=== PATIENT | male | born 1945 | race Caucasian/White ===

== ENCOUNTER 2019-06-11 08:12 | Outpatient (CLI) | payer MEDICARE ==
[2019-06-11 10:02] LABS: BASOPHILS # (AUTO) 0.1 10^3/uL (0.0-0.1); BASOPHILS % (AUTO) 0.6 %; EOSINOPHILS # (AUTO) 0.3 10^3/uL (0.0-0.7); EOSINOPHILS % (AUTO) 3.4 %; HGB - HEMOGLOBIN 15.7 g/dL (14.0-18.0); LYMPHOCYTES # (AUTO) 1.8 10^3/uL (1.5-3.5); LYMPHOCYTES % (AUTO) 22.9 %; MEAN CORPUSCULAR HEMOGLOBIN 32.1 pg (27.0-31.0); MEAN CORPUSCULAR HGB CONC 34.1 g/dL (32.0-36.0); MEAN CORPUSCULAR VOLUME 94.1 fL (80.0-94.0); MEAN PLATELET VOLUME 10.3 fL (7.4-11.4); MONOCYTES # (AUTO) 0.8 10^3/uL (0.0-1.0); MONOCYTES % (AUTO) 9.4 %; NEUTROPHILS # (AUTO) 5.1 10^3/uL (1.5-6.6); NEUTROPHILS % (AUTO) 63.4 %; PLT - PLATELET COUNT 273 10^3/uL (130-450); RED BLOOD COUNT 4.89 10^6/uL (4.70-6.10); RED CELL DISTRIBUTION WIDTH 13.1 % (12.0-15.0)
[2019-06-11 10:21] LABS: ALBUMIN/GLOBULIN RATIO 1.4 (1.0-2.2); ALKALINE PHOSPHATASE 68 IU/L (42-121); ALT ALANINE AMINOTRANSFERASE 33 IU/L (10-60); AST ASPARTATE AMINOTRANSFERASE 31 IU/L (10-42); BILIRUBIN,TOTAL 0.9 mg/dL (0.2-1.0); BUN - BLOOD UREA NITROGEN 21 mg/dL (6-20); CALCIUM 9.4 mg/dL (8.5-10.3); CARBON DIOXIDE - CO2 29 mmol/L (21-32); CHLORIDE 102 mmol/L (101-111); CHOL/HDL RATIO 3.1 (<5.0); CHOLESTEROL 162 mg/dL; CREATININE 1.1 mg/dL (0.6-1.2); GFR - MDRD 65 (>89); GLUCOSE 118 mg/dL (70-100); HDL CHOLESTEROL 52 mg/dL; LDL CHOLESTEROL,CALCULATED 96 mg/dL; LDL/HDL RATIO 1.8 (<3.6); SODIUM 138 mmol/L (135-145); TOTAL PROTEIN 6.9 g/dL (6.7-8.2); VLDL CHOLESTEROL 14 mg/dL
[2019-06-11 10:28] LABS: PSA FREE 0.295 ng/mL (0.16-2.81); PSA TOTAL 0.594 ng/mL (0.000-2.000)
== END 2019-06-11 08:13 | disposition home or self-care (01) ==
LOC: LAB.S 08:12
PROVIDERS: ATTEND Registered Nurse
DX: N40.0 Benign prostatic hyperplasia without lower urinary tract symptoms (principal); K21.9 Gastro-esophageal reflux disease without esophagitis; E78.5 Hyperlipidemia, unspecified; E04.1 Nontoxic single thyroid nodule
CPT/HCPCS: 36415; 80053; 80061; 83721; 84153; 84154; 84443; 85025

== ENCOUNTER 2020-04-08 07:37 | Outpatient (CLI) | payer MEDICARE ==
[2020-04-08 14:33] LABS: BASOPHILS % (AUTO) 0.5 %; EOSINOPHILS # (AUTO) 0.3 10^3/uL (0.0-0.7); EOSINOPHILS % (AUTO) 3.4 %; HGB - HEMOGLOBIN 15.6 g/dL (14.0-18.0); LYMPHOCYTES # (AUTO) 2.2 10^3/uL (1.5-3.5); LYMPHOCYTES % (AUTO) 26.3 %; MEAN CORPUSCULAR HEMOGLOBIN 30.9 pg (27.0-31.0); MEAN CORPUSCULAR HGB CONC 32.8 g/dL (32.0-36.0); MEAN CORPUSCULAR VOLUME 94.3 fL (80.0-94.0); MEAN PLATELET VOLUME 10.3 fL (7.4-11.4); MONOCYTES # (AUTO) 0.8 10^3/uL (0.0-1.0); MONOCYTES % (AUTO) 9.4 %; PLT - PLATELET COUNT 289 10^3/uL (130-450); RED BLOOD COUNT 5.05 10^6/uL (4.70-6.10); RED CELL DISTRIBUTION WIDTH 13.1 % (12.0-15.0); WHITE BLOOD COUNT 8.3 x10^3/uL (4.8-10.8)
[2020-04-08 15:46] LABS: ALBUMIN/GLOBULIN RATIO 1.4 (1.0-2.2); ALKALINE PHOSPHATASE 72 IU/L (42-121); ALT ALANINE AMINOTRANSFERASE 33 IU/L (10-60); AST ASPARTATE AMINOTRANSFERASE 30 IU/L (10-42); BILIRUBIN,TOTAL 1.1 mg/dL (0.2-1.0); BUN - BLOOD UREA NITROGEN 26 mg/dL (6-20); CALCIUM 9.6 mg/dL (8.5-10.3); CARBON DIOXIDE - CO2 28 mmol/L (21-32); CHLORIDE 105 mmol/L (101-111); CHOL/HDL RATIO 3.4 (<5.0); CHOLESTEROL 161 mg/dL; CREATININE 1.1 mg/dL (0.6-1.2); GLUCOSE 109 mg/dL (70-100); HDL CHOLESTEROL 47 mg/dL; LDL CHOLESTEROL,CALCULATED 98 mg/dL; LDL/HDL RATIO 2.1 (<3.6); SODIUM 139 mmol/L (135-145); TOTAL PROTEIN 6.9 g/dL (6.7-8.2); VLDL CHOLESTEROL 16 mg/dL
== END 2020-04-08 07:38 | disposition home or self-care (01) ==
LOC: LAB.S 07:37
PROVIDERS: ATTEND Registered Nurse
DX: N40.0 Benign prostatic hyperplasia without lower urinary tract symptoms (principal); K21.9 Gastro-esophageal reflux disease without esophagitis; E78.5 Hyperlipidemia, unspecified; I10 Essential (primary) hypertension; I26.99 Other pulmonary embolism without acute cor pulmonale; E04.1 Nontoxic single thyroid nodule
CPT/HCPCS: 36415; 80053; 80061; 83721; 84153; 84443; 85025

== ENCOUNTER 2021-04-15 07:08 | Outpatient (CLI) | payer MEDICARE ==
[2021-04-15 14:59] LABS: BASOPHILS % (AUTO) 0.5 %; EOSINOPHILS # (AUTO) 0.3 10^3/uL (0.0-0.7); EOSINOPHILS % (AUTO) 3.4 %; HCT - HEMATOCRIT 48.2 % (42.0-52.0); LYMPHOCYTES # (AUTO) 2.3 10^3/uL (1.5-3.5); LYMPHOCYTES % (AUTO) 26.5 %; MEAN CORPUSCULAR HEMOGLOBIN 31.1 pg (27.0-31.0); MEAN CORPUSCULAR HGB CONC 33.2 g/dL (32.0-36.0); MEAN CORPUSCULAR VOLUME 93.8 fL (80.0-94.0); MEAN PLATELET VOLUME 10.4 fL (7.4-11.4); MONOCYTES # (AUTO) 0.7 10^3/uL (0.0-1.0); MONOCYTES % (AUTO) 7.7 %; NEUTROPHILS # (AUTO) 5.3 10^3/uL (1.5-6.6); NEUTROPHILS % (AUTO) 61.4 %; PLT - PLATELET COUNT 295 10^3/uL (130-450); RED BLOOD COUNT 5.14 10^6/uL (4.70-6.10); RED CELL DISTRIBUTION WIDTH 13.1 % (12.0-15.0); WHITE BLOOD COUNT 8.7 x10^3/uL (4.8-10.8)
[2021-04-15 15:11] LABS: THYROID STIMULATING HORMONE 4.71 uIU/mL (0.34-5.60)
[2021-04-15 15:22] LABS: ALBUMIN/GLOBULIN RATIO 1.3 (1.0-2.2); ALKALINE PHOSPHATASE 73 IU/L (42-121); ALT ALANINE AMINOTRANSFERASE 32 IU/L (10-60); AST ASPARTATE AMINOTRANSFERASE 28 IU/L (10-42); BILIRUBIN,TOTAL 0.9 mg/dL (0.2-1.0); BUN - BLOOD UREA NITROGEN 29 mg/dL (6-20); CALCIUM 9.4 mg/dL (8.5-10.3); CARBON DIOXIDE - CO2 28 mmol/L (21-32); CHLORIDE 101 mmol/L (101-111); CHOL/HDL RATIO 4.1 (<5.0); CHOLESTEROL 180 mg/dL; CREATININE 1.2 mg/dL (0.6-1.2); GFR - MDRD 59 (>89); GLUCOSE 121 mg/dL (70-100); HDL CHOLESTEROL 44 mg/dL; LDL CHOLESTEROL,CALCULATED 115 mg/dL; LDL/HDL RATIO 2.6 (<3.6); POTASSIUM 3.9 mmol/L (3.5-5.0); SODIUM 138 mmol/L (135-145); TOTAL PROTEIN 7.2 g/dL (6.7-8.2); TRIGLYCERIDES 107 mg/dL; VLDL CHOLESTEROL 21 mg/dL
== END 2021-04-15 07:09 | disposition home or self-care (01) ==
LOC: LAB.S 07:08
PROVIDERS: ATTEND Registered Nurse
DX: N40.0 Benign prostatic hyperplasia without lower urinary tract symptoms (principal); E78.5 Hyperlipidemia, unspecified; I10 Essential (primary) hypertension; E04.1 Nontoxic single thyroid nodule; Z12.5 Encounter for screening for malignant neoplasm of prostate
CPT/HCPCS: 36415; 80053; 80061; 84443; 85025; G0103; 83721; 84153

== ENCOUNTER 2022-05-05 08:30 | Outpatient (CLI) | payer MEDICARE ==
[2022-05-05 14:54] LABS: BASOPHILS % (AUTO) 0.5 %; EOSINOPHILS # (AUTO) 0.2 10^3/uL (0.0-0.7); EOSINOPHILS % (AUTO) 2.2 %; HCT - HEMATOCRIT 49.8 % (42.0-52.0); LYMPHOCYTES # (AUTO) 2.2 10^3/uL (1.5-3.5); LYMPHOCYTES % (AUTO) 25.4 %; MEAN CORPUSCULAR HGB CONC 32.1 g/dL (32.0-36.0); MEAN CORPUSCULAR VOLUME 93.3 fL (80.0-94.0); MEAN PLATELET VOLUME 10.4 fL (7.4-11.4); MONOCYTES # (AUTO) 0.8 10^3/uL (0.0-1.0); MONOCYTES % (AUTO) 8.8 %; NEUTROPHILS # (AUTO) 5.3 10^3/uL (1.5-6.6); NEUTROPHILS % (AUTO) 62.7 %; PLT - PLATELET COUNT 309 10^3/uL (130-450); RED BLOOD COUNT 5.34 10^6/uL (4.70-6.10); RED CELL DISTRIBUTION WIDTH 12.8 % (12.0-15.0); WHITE BLOOD COUNT 8.5 x10^3/uL (4.8-10.8)
[2022-05-05 15:26] LABS: THYROID STIMULATING HORMONE 3.66 uIU/mL (0.34-5.60)
[2022-05-05 15:29] LABS: ALBUMIN 4.2 g/dL (3.2-5.5); ALBUMIN/GLOBULIN RATIO 1.4 (1.0-2.2); ALKALINE PHOSPHATASE 73 IU/L (42-121); ALT ALANINE AMINOTRANSFERASE 26 IU/L (10-60); AST ASPARTATE AMINOTRANSFERASE 28 IU/L (10-42); BILIRUBIN,TOTAL 1.2 mg/dL (0.2-1.0); BUN - BLOOD UREA NITROGEN 33 mg/dL (6-20); CALCIUM 9.3 mg/dL (8.5-10.3); CARBON DIOXIDE - CO2 26 mmol/L (21-32); CHLORIDE 99 mmol/L (101-111); CHOL/HDL RATIO 3.3 (<5.0); CHOLESTEROL 169 mg/dL; CREATININE 1.3 mg/dL (0.6-1.2); GFR - MDRD 53 (>89); GLUCOSE 119 mg/dL (70-100); HDL CHOLESTEROL 51 mg/dL; LDL CHOLESTEROL,CALCULATED 104 mg/dL; POTASSIUM 4.1 mmol/L (3.5-5.0); SODIUM 138 mmol/L (135-145); TOTAL PROTEIN 7.2 g/dL (6.7-8.2); TRIGLYCERIDES 71 mg/dL; VLDL CHOLESTEROL 14 mg/dL
== END 2022-05-05 08:31 | disposition home or self-care (01) ==
LOC: LAB.S 08:30
PROVIDERS: ATTEND Registered Nurse
DX: I10 Essential (primary) hypertension (principal); E78.5 Hyperlipidemia, unspecified; E04.1 Nontoxic single thyroid nodule; N40.0 Benign prostatic hyperplasia without lower urinary tract symptoms
CPT/HCPCS: 36415; 80053; 80061; 84443; 85025; G0103; 83721; 84153

== ENCOUNTER 2023-04-24 08:18 | Outpatient (CLI) | payer MEDICARE ==
[2023-04-24 15:05] LABS: CALCIUM 9.3 mg/dL (8.5-10.3); POTASSIUM 4.4 mmol/L (3.5-4.5)
[2023-04-24 20:56] LABS: ESTIMATED AVERAGE GLUCOSE 117 mg/dL (70-100); HEMOGLOBIN A1c% 5.7 % (4.27-6.07)
== END 2023-04-24 08:19 | disposition home or self-care (01) ==
LOC: LAB.S 08:18
PROVIDERS: ATTEND Registered Nurse
DX: R73.9 Hyperglycemia, unspecified (principal)
CPT/HCPCS: 36415; 80048; 83036

== ENCOUNTER 2023-10-16 10:54 | Inpatient (IN) | payer MEDICARE ==
--- NOTE | 2023-10-16 11:14 | ED Physician Documentation ---
PD HPI DYSPNEA - Stated complaint Stated Complaint: SOA - Chief complaint Chief Complaint: Resp - Additional information Additional information: 78-year-old male with history of hypertension, hypercholesterolemia, pulmonary embolism x 2 anticoagulated on Xaerlto possible A-fib about 10 years ago presents emergency department for dyspnea on exertion. Patient said about a month ago he was experiencing a persistent cough with hacking and has been noticing increased shortness of breath with exertional activity that has been getting severely worse over the last month and a half. He says that he also is having some new swelling spreading up his legs to his thigh that he has never had before. No recent fevers or chills. Patient has not missed any recent doses of his Xarelto and denies any chest pain or dizziness he does endorse and some chest tightness with inhalation. PD PAST MEDICAL HISTORY - Past Medical History Past Medical History: Yes Cardiovascular: Hypertension, High cholesterol Respiratory: Other - Past Surgical History Past Surgical History: No - Present Medications Home Medications: Ambulatory Orders Medication Instructions Recorded Confirmed Atorvastatin [Lipitor] 20 mg HS 10/16/23 10/16/23 Lisinopril [Zestril] 20 mg 10/16/23 Rivaroxaban [Xarelto] 20 mg 10/16/23 hydroCHLOROthiazide [Hydrodiuril] 12.5 mg DAILY 10/16/23 10/16/23 - Allergies Allergies/Adverse Reactions: Allergies Allergy/AdvReac Type Severity Reaction Status Date / Time No Known Drug Allergies Allergy Verified 10/16/23 11:24 - Social History Does the pt smoke?: No Smoking Status: Never smoker Does the pt drink ETOH?: Yes Does the pt have substance abuse?: No - Immunizations Immunizations are current?: Yes PD ED PE NORMAL - Vitals Vital signs reviewed: Yes - General General: Alert and oriented X 3, No acute distress, Well developed/nourished - HEENT HEENT: Atraumatic - Cardiac Cardiac: RRR, Other (irregularly irregular) - Respiratory Respiratory: No respiratory distress, Other (decreaed breath sounds) - Derm Derm: Normal color, Warm and dry, No rash - Extremities Extremities: Other (bilateral 3+ pitting edema) - Psych Psych: Normal mood - Free text exam Free text exam: right Results - Vitals Vitals: Vital Signs - 24 hr 10/16/23 10/16/23 10/16/23 11:00 11:20 11:30 Temperature 36.7 C Heart Rate 89 187 H 195 H Respiratory 20 21 99 H Rate Blood Pressure 132/92 H 133/100 H 124/101 H O2 Saturation 100 100 20 L 10/16/23 10/16/23 10/16/23 11:40 11:49 12:02 Temperature Heart Rate 152 H 159 H 157 H Respiratory 19 17 20 Rate Blood Pressure 121/78 123/91 H 123/87 H O2 Saturation 99 95 97 10/16/23 10/16/23 10/16/23 12:10 12:15 12:30 Temperature Heart Rate 166 H 184 H 164 H Respiratory 17 14 17 Rate Blood Pressure 125/96 H 122/93 H 102/81 H O2 Saturation 97 95 95 10/16/23 10/16/23 13:00 14:10 Temperature Heart Rate 155 H 144 H Respiratory 22 18 Rate Blood Pressure 133/89 H 129/96 H O2 Saturation 95 98 Oxygen O2 Source Room air - EKG (time done) 1115 EKG releavant findings:: EKG personally interpreted by author of this note. Relevant findings are: Rate: Rate (enter#) (181) Rhythm: Atrial fibrillation, Other (RVR) Ischemia: Non specific changes Computer interpretation: Agree with computer - Labs Labs: Laboratory Tests 10/16/23 10/16/23 10/16/23 11:13 11:13 11:13 WBC 10.7 RBC 5.44 Hgb 16.4 Hct 50.9 MCV 93.6 MCH 30.1 MCHC 32.2 RDW 13.9 Plt Count 245 MPV 11.6 H Neut # (Auto) 7.2 H Lymph # (Auto) 2.4 [place] # (Auto) 0.9 Eos # (Auto) 0.2 Baso # (Auto) 0.1 Absolute Nucleated RBC 0.00 Nucleated RBC % 0.0 PT INR Sodium 142 Potassium 4.1 Chloride 107 Carbon Dioxide 27 Anion Gap 8.0 BUN 29 H Creatinine 1.4 H Estimated GFR (MDRD) 49 L Glucose 134 H Calcium 9.9 Total Bilirubin 1.5 H AST 49 H ALT 61 H Alkaline Phosphatase 81 Troponin I High Sens 10.6 B-Natriuretic Peptide 480 H Total Protein 7.2 Albumin 4.2 Globulin 3.0 Albumin/Globulin Ratio 1.4 Lipase 44 TSH 10/16/23 10/16/23 11:13 11:13 WBC RBC Hgb Hct MCV MCH MCHC RDW Plt Count MPV Neut # (Auto) Lymph # (Auto) [place] # (Auto) Eos # (Auto) Baso # (Auto) Absolute Nucleated RBC Nucleated RBC % PT 15.5 H INR 1.5 H Sodium Potassium Chloride Carbon Dioxide Anion Gap BUN Creatinine Estimated GFR (MDRD) Glucose Calcium Total Bilirubin AST ALT Alkaline Phosphatase Troponin I High Sens B-Natriuretic Peptide Total Protein Albumin Globulin Albumin/Globulin Ratio Lipase TSH 5.28 - Rads (name of study) Chest x-ray Relevant Findings:: Final report received, EMP independent interpretation of test, Other (Moderate right small left pleural effusions with bibasilar ate lectasis) PD Medical Decision Making - ED course ED course: 78-year-old presents emergency department for dyspnea on exertion. Upon arrival patient is found to be quite tachycardic and appears to be in A-fib RVR confirmed with EKG heart rate up to the 180s 190s. We attempted to give him 2 doses of IV push diltiazem with no improvement of symptoms. Labs are complete for further evaluation INR is 1.5 he says that he has not missed any doses of his Eliquis. No leukocytosis no anemia BUN slightly elevated at 29 GFR slightly suppressed at 49 last GFR was 04/24/2023 and it was 72. Patient does endorse that he has had a recent weight gain of about 7 to 9 pounds over the last couple weeks with worsening bilateral pitting edema. BNP is found to be 480 making me suspicious for possible new diagnoses of possible heart failure. He was also given 40 mg of IV Lasix here in the emergency department and again we are having a hard time controlling his rate. I spoke with hospitalist Dr. Qiu about patient's A-fib with RVR and poor rate control he remains hemodynamically stable and Dr. Qiu has graciously agreed to admit patient for IV diltiazem and inpatient echocardiogram for further workup of his A-fib with RVR to help with rate control. Patient has reluctantly agreed for hospitalization but is hopeful to not be here too long. I did consider doing a CT chest angio but given the fact that patient has had the symptoms now for about a month and a half he has no hypoxia and is fully anticoagulated on Eliquis this is lower on my differential not something I think warrants workup at this point in time. Departure - Departure Disposition: 66 [facility] DC/Xfer Clinical Impression: Atrial fibrillation with RVR, ASHLY (acute kidney injury), Pleural effusion Condition: Stable Discharge Date/Time: 10/16/23 15:10
[2023-10-16 11:18] LABS: BASOPHILS # (AUTO) 0.1 10^3/uL (0.0-0.1); BASOPHILS % (AUTO) 0.5 %; EOSINOPHILS # (AUTO) 0.2 10^3/uL (0.0-0.7); EOSINOPHILS % (AUTO) 1.8 %; HCT - HEMATOCRIT 50.9 % (42.0-52.0); HGB - HEMOGLOBIN 16.4 g/dL (14.0-18.0); LYMPHOCYTES # (AUTO) 2.4 10^3/uL (1.5-3.5); LYMPHOCYTES % (AUTO) 21.9 %; MEAN CORPUSCULAR HEMOGLOBIN 30.1 pg (27.0-31.0); MEAN CORPUSCULAR HGB CONC 32.2 g/dL (32.0-36.0); MEAN CORPUSCULAR VOLUME 93.6 fL (80.0-94.0); MEAN PLATELET VOLUME 11.6 fL (7.4-11.4); MONOCYTES # (AUTO) 0.9 10^3/uL (0.0-1.0); MONOCYTES % (AUTO) 8.7 %; NEUTROPHILS # (AUTO) 7.2 10^3/uL (1.5-6.6); NEUTROPHILS % (AUTO) 66.8 %; PLT - PLATELET COUNT 245 10^3/uL (130-450); RED BLOOD COUNT 5.44 10^6/uL (4.70-6.10); RED CELL DISTRIBUTION WIDTH 13.9 % (12.0-15.0); WHITE BLOOD COUNT 10.7 x10^3/uL (4.8-10.8)
[2023-10-16] MEDS: diltiaZEM INJ 5 MG/ML VIAL IVP STA ×2 (11:36→12:08)
[2023-10-16 11:38] LABS: ALBUMIN 4.2 g/dL (3.2-5.5); ALBUMIN/GLOBULIN RATIO 1.4 (1.0-2.2); BILIRUBIN,TOTAL 1.5 mg/dL (0.2-1.0); CALCIUM 9.9 mg/dL (8.5-10.3); CREATININE 1.4 mg/dL (0.6-1.3); POTASSIUM 4.1 mmol/L (3.5-4.5); TOTAL PROTEIN 7.2 g/dL (6.4-8.9)
[2023-10-16 11:39] LABS: TROPONIN I HIGH SENSITIVITY 10.6 ng/L (2.3-19.7)
--- NOTE | 2023-10-16 11:41 | XRAY Report ---
PROCEDURE: Chest 1V INDICATIONS: Chest Pain TECHNIQUE: One view of the chest was acquired. COMPARISON: CT 09/29/2011 FINDINGS: Surgical changes and devices: None. Lungs and pleura: Moderate right and small left pleural effusions with bibasilar atelectasis. Mediastinum: Mediastinal contours appear normal. Heart size is normal. Bones and chest wall: No suspicious bony lesions. Overlying soft tissues appear unremarkable. IMPRESSION: Moderate right and small left pleural effusions with bibasilar atelectasis. Reviewed by: Henry Lopez MD on 10/16/2023 10:40 AM NATHAN Approved by: Henry Lopez MD on 10/16/2023 10:40 AM NATHAN Station ID: [id number]
[2023-10-16 11:48] LABS: INR 1.5 (0.8-1.2); PT - PROTHROMBIN TIME 15.5 secs (9.9-12.6)
[2023-10-16] MEDS: PROCAINAMIDE 1,000 MG in SODIUM CHLORIDE 0.9% 240 ML IV STA (12:13)
[2023-10-16] MEDS: diltiaZEM INJ 125 MG in DEXTROSE 5% 100 ML IV STA (14:11)
[2023-10-16] MEDS ORDERED: SODIUM CHLORIDE FLUSH 0.9% 10 ML SYRINGE IVP PRN (14:18)
[2023-10-16] MEDS ORDERED: ACETAMINOPHEN 325 MG TABLET PO PRN (14:18)
[2023-10-16] MEDS ORDERED: ONDANSETRON 4 MG/2 ML VIAL IVP PRN (14:18)
[2023-10-16] MEDS ORDERED: ONDANSETRON ODT 4 MG TABLET TL PRN (14:18)
--- NOTE | 2023-10-16 16:08 | HISTORY & PHYSICAL EXAMINATION ---
Chief Complaint - Chief Complaint Chief Complaint: Shortness of breath History of Present Illness - History of Present Illness HPI Comment/Other: Patient is a 78-year-old male with a past medical history of hypertension, hyperlipidemia, prior pulmonary emboli in 2011 and 2016 of unknown etiology and on rivaroxaban chronically who presented to the ED due to complaints of shortness of breath that had been progressing over several months as well as unintentional weight gain. Upon presentation chest x-ray was performed which showed evidence of a moderate right and small left pleural effusion with bibasilar atelectasis. Patient was not hypoxic however an EKG reportedly showed atrial fibrillation with rapid ventricular rate. He was given a bolus of diltiazem and started on a diltiazem infusion for rate control. His initial troponin was negative. Patient was also given IV Lasix. His creatinine was 1.4. During my evaluation patient denied any current complaints while at rest. He did not have any chest pain. 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 History - Past Medical History Cardiovascular: reports: Hypertension, High cholesterol Respiratory: reports: Other MRSA Hx?: No Meds/Allgy - Home Medications Home Medications: Ambulatory Orders Medication Instructions Recorded Confirmed Atorvastatin [Lipitor] 20 mg HS 10/16/23 10/16/23 Lisinopril [Zestril] 20 mg 10/16/23 Rivaroxaban [Xarelto] 20 mg 10/16/23 hydroCHLOROthiazide [Hydrodiuril] 12.5 mg DAILY 10/16/23 10/16/23 - Allergies Allergies/Adverse Reactions: Allergies Allergy/AdvReac Type Severity Reaction Status Date / Time No Known Drug Allergies Allergy Verified 10/16/23 11:24 Review of Systems - Constitutional Constitutional: denies: Fatigue, Fever, Chills - Cardiovascular Cariovascular: reports: Irregular heart rate, Exertional dyspnea. denies: Palpitations, Chest pain, Lightheadedness, Syncope - All Other Systems All Other Systems: reports: Reviewed and negative Exam - Vital Signs Vital Signs: Vital Signs x48h Temp Pulse Resp BP Pulse Ox 10/16/23 16:00 153 H 17 116/91 H 96 10/16/23 15:00 157 H 19 10/16/23 14:30 158 H 14 124/97 H 96 10/16/23 14:20 165 H 18 133/97 H 97 10/16/23 14:10 144 H 18 129/96 H 98 10/16/23 13:00 155 H 22 133/89 H 95 10/16/23 12:30 164 H 17 102/81 H 95 10/16/23 12:15 184 H 14 122/93 H 95 10/16/23 12:10 166 H 17 125/96 H 97 10/16/23 12:02 157 H 20 123/87 H 97 10/16/23 11:49 159 H 17 123/91 H 95 10/16/23 11:40 152 H 19 121/78 99 10/16/23 11:30 195 H 99 H 124/101 H 20 L 10/16/23 11:20 187 H 21 133/100 H 100 10/16/23 11:00 36.7 C 89 20 132/92 H 100 - Physical Exam General Appearance: positive: No acute distress, Alert, Mild distress Respiratory: positive: Chest non-tender, No respiratory distress, Breath sounds nml Cardiovascular: positive: Tachycardia Abdomen: positive: Non-tender, No organomegaly, Nml bowel sounds, No distention Extremities: positive: Non-tender, Full ROM, No pedal edema Sepsis Event Note (H) - Evaluation Current Stage of Sepsis: Ruled out Conclusion/Plan - Problem List (1) Atrial fibrillation with RVR Conclusion/Plan: --New onset atrial fibrillation with rapid ventricular rate. --Started on a diltiazem drip which is currently at maximum. --Will trial him on digoxin 250 mcg every 6 hours to help achieve rate control. --If unable to control rate will start him on IV amiodarone tomorrow. --Currently he is already anticoagulant with Xarelto at home due to a prior history of PE. --TTE pending. --TSH WNL. --Trending troponin. (2) CHF (congestive heart failure) Conclusion/Plan: --Appears to be in heart failure with recent >20 lbs weight gain. --Start on Lasix 40 mg IV daily. --Monitor I/O --TTE ordered. (3) ASHLY (acute kidney injury) Conclusion/Plan: --Baseline renal function is unknown. Continue to monitor renal function. (4) History of pulmonary embolism Conclusion/Plan: --Prior history of PE in 2011 and 2016. No etiology of PE found. He denies a family history of coagulopathies. States his cancer screening is not up to date. I recommneded a screening colonoscopy for him as an outpatient. --Continue Xarelto. Dispo: ICU management for Afib. - Lab Results Fish Bones: 10/16/23 11:13 10/16/23 11:13
[2023-10-16] MEDS: DIGOXIN 500 MCG/2 ML AMP IVP SCH (16:47)
[2023-10-16] MEDS: FUROSEMIDE 40 MG/4 ML VIAL IVP STA (16:47)
[2023-10-16] MEDS: SODIUM CHLORIDE FLUSH 0.9% 10 ML SYRINGE IVP SCH (16:47)
--- NOTE | 2023-10-16 17:34 | PHARMACY PROGRESS NOTE ---
- Best Possible Medication History Admit Date and Time: 10/16/23 1418 Processed by: Pharmacy Medications reviewed in ED?: Yes Medication History completed: Yes Patient Interview: Completed (BY [employer]ALTH POLICY [facility]URSEMCK[facility]) Secondary Source(s): Physician records, Insurance records As the person ultimately responsible for medication therapy, providers are able to order a medication from an existing home medication list in [facility] via the "Reconcile Routine" prior to Confirmation of that medication by systems support officer. Such practice is discouraged except when the physician, in their clinical judgment, deems that a medical need exists for a medication without regard to previous use.
[2023-10-16] MEDS: ATORVASTATIN 10 MG TABLET PO SCH (20:47)
[2023-10-16] MEDS: FAMOTIDINE 20 MG TABLET PO SCH (20:47)
[2023-10-16] MEDS: APIXABAN 5 MG TABLET PO SCH (20:47)
[2023-10-16] MEDS ORDERED: ENOXAPARIN 40 MG/0.4 ML SYRINGE SUBQ SCH (21:00)
[2023-10-16] MEDS: diltiaZEM INJ 125 MG in DEXTROSE 5% 100 ML IV SCH (21:45)
[2023-10-17 05:51] LABS: CALCIUM, IONIZED 1.18 mmol/L (1.15-1.33); VBG PH 7.408 (7.31-7.41)
[2023-10-17 05:58] LABS: BASOPHILS % (AUTO) 0.3 %; EOSINOPHILS # (AUTO) 0.1 10^3/uL (0.0-0.7); EOSINOPHILS % (AUTO) 1.2 %; HCT - HEMATOCRIT 48.4 % (42.0-52.0); LYMPHOCYTES # (AUTO) 1.8 10^3/uL (1.5-3.5); LYMPHOCYTES % (AUTO) 16.6 %; MEAN CORPUSCULAR HEMOGLOBIN 30.4 pg (27.0-31.0); MEAN CORPUSCULAR HGB CONC 33.1 g/dL (32.0-36.0); MEAN PLATELET VOLUME 11.6 fL (7.4-11.4); MONOCYTES # (AUTO) 0.9 10^3/uL (0.0-1.0); MONOCYTES % (AUTO) 8.3 %; NEUTROPHILS # (AUTO) 7.9 10^3/uL (1.5-6.6); NEUTROPHILS % (AUTO) 73.4 %; PLT - PLATELET COUNT 219 10^3/uL (130-450); RED BLOOD COUNT 5.26 10^6/uL (4.70-6.10); RED CELL DISTRIBUTION WIDTH 13.8 % (12.0-15.0); WHITE BLOOD COUNT 10.8 x10^3/uL (4.8-10.8)
[2023-10-17 06:09] LABS: CALCIUM 9.8 mg/dL (8.5-10.3); CREATININE 1.3 mg/dL (0.6-1.3); PHOSPHORUS 3.4 mg/dL (2.5-5.0); POTASSIUM 4.2 mmol/L (3.5-4.5)
[2023-10-17] MEDS: FUROSEMIDE 40 MG/4 ML VIAL IVP SCH (08:25)
[2023-10-17] MEDS: AMIODARONE 150 MG/100 ML 100 ML IV ONE ×2 (08:32→12:49)
[2023-10-17] MEDS: AMIODARONE 360 MG/200 ML 200 ML IV ONE (08:42)
--- NOTE | 2023-10-17 12:14 | PROVIDER PROGRESS NOTE ---
Assessment/Plan - Problem List (1) Atrial fibrillation with RVR Assessment/Plan: (1) Atrial fibrillation with RVR Conclusion/Plan: --New onset atrial fibrillation with rapid ventricular rate. --Patient was trialed on diltiazem at a max rate without improvement in his rate. He has since been placed on am amiodarone infusion. He has received 2 boluses of 150 mg IV amiodarone. --Will trial him on digoxin 250 mcg every 6 hours to help achieve rate control. --Currently he is already anticoagulant with Xarelto at home due to a prior history of PE. --TTE pending. --TSH WNL. --Trending troponin. (2) CHF (congestive heart failure) Conclusion/Plan: --Appears to be in heart failure with recent >20 lbs weight gain. --Start on Lasix 40 mg IV daily. --Monitor I/O --TTE ordered. (3) ASHLY (acute kidney injury) Conclusion/Plan: --Baseline renal function is unknown. Continue to monitor renal function. (4) History of pulmonary embolism Conclusion/Plan: --Prior history of PE in 2011 and 2016. No etiology of PE found. He denies a family history of coagulopathies. States his cancer screening is not up to date. I recommneded a screening colonoscopy for him as an outpatient. --Continue Xarelto. Dispo: ICU management for Afib. - Current Meds Current Meds: Current Medications Generic Name Dose Route Start Last Admin Trade Name Freq PRN Reason Stop Dose Admin Apixaban 5 mg 10/16/23 21:00 10/17/23 08:25 Apixaban 5 Mg Tablet PO 5 mg BID JAREK Administration Atorvastatin Calcium 20 mg 10/16/23 21:00 10/16/23 20:47 Atorvastatin 10 Mg Tablet PO 20 mg QPM JAREK Administration Famotidine 20 mg 10/16/23 21:00 10/17/23 08:25 Famotidine 20 Mg Tablet PO 20 mg BID JAREK Administration Furosemide 40 mg 10/17/23 09:00 10/17/23 08:25 Furosemide 40 Mg/4 Ml Vial IVP 40 mg DAILY JAREK Administration Amiodarone HCl/Dextrose 200 mls @ 33.333 mls/hr 10/17/23 07:56 10/17/23 08:42 Nexterone 360 Mg/200 Ml IV 10/17/23 13:55 33.333 mls/hr ONCE ONE Administration Sodium Chloride 10 ml 10/16/23 17:00 10/17/23 08:26 Sodium Chloride Flush 0.9% 10 Ml Syringe IVP 10 ml 0100,0900,1700 JAREK Administration - Lab Result Fish Bone Diagrams: 10/17/23 05:27 10/17/23 05:27 - Additional Planning My Orders: My Active Orders 10/16/23 14:18 Activity Orders (ICU) [RC] Q2HR Daily Weight [RC] 0600 IO [RC] Q1HR Initiate Bowel Care Protocol [RC] QSHIFT Initiate ICU Electrolyte Prot. [RC] .protocol Initiate Line Care Protocol [RC] .protocol Initiate Personal Care Protoco [RC] .protocol Initiate Progressive Mobility Protocol [RC] 0800,2000 Vital Signs [RC] Q1HR Acetaminophen [Tylenol] 650 mg PO Q4HR PRN Ondansetron Inj [Zofran Inj] 4 mg IVP Q6HR PRN Ondansetron Odt [Zofran Odt] 4 mg TL Q6HR PRN Sodium Chloride Flush 0.9% [Normal Saline Flush 0.9%] 10 ml IVP PRN PRN Code Status [OTHERS] Routine Condition of Patient [OTHERS] Routine DVT Prophylaxis [OTHERS] Routine 10/16/23 14:21 Echo Transthoracic Complete [ECHO] Routine 10/16/23 Dinner Cardiac Diet [DIET] 10/16/23 17:00 Sodium Chloride Flush 0.9% [Normal Saline Flush 0.9%] 10 ml IVP 0100,0900,1700 10/16/23 21:00 Apixaban [Eliquis] 5 mg PO BID Atorvastatin [Lipitor] 20 mg PO QPM Famotidine [Pepcid] 20 mg PO BID 10/17/23 07:56 Amiodarone 360 mg/200 ml [Nexterone 360 mg/200 ml] 200 ml IV ONCE 10/17/23 08:00 Amiodarone 360 mg/200 ml [Nexterone 360 mg/200 ml] 200 ml IV 0.5 mg/min 10/17/23 09:00 FUROSEMIDE INJ 40mg VIAL [LASIX INJ 40 mg VIAL] 40 mg IVP DAILY 10/18/23 05:00 BMP - BASIC METABOLIC PANEL [CHEM] DAILYLAB CALCIUM, IONIZED ([facility]) [BG] DAILYLAB CBC [CBC - COMP BLD CT W/AUTO DIFF] [HEME] DAILYLAB PHOSPHORUS [CHEM] DAILYLAB 10/18/23 09:00 MAGNESIUM [CHEM] DAILY 10/19/23 05:00 BMP - BASIC METABOLIC PANEL [CHEM] DAILYLAB CALCIUM, IONIZED ([facility]) [BG] DAILYLAB CBC [CBC - COMP BLD CT W/AUTO DIFF] [HEME] DAILYLAB PHOSPHORUS [CHEM] DAILYLAB 10/19/23 09:00 MAGNESIUM [CHEM] DAILY 10/20/23 05:00 BMP - BASIC METABOLIC PANEL [CHEM] DAILYLAB CBC [CBC - COMP BLD CT W/AUTO DIFF] [HEME] DAILYLAB 10/21/23 05:00 BMP - BASIC METABOLIC PANEL [CHEM] DAILYLAB CBC [CBC - COMP BLD CT W/AUTO DIFF] [HEME] DAILYLAB Subjective - Subjective Patient Reports: Feeling Better, Resting Comfortably, No Complaints Objective Vital Signs: Vital Signs - 24 hr 10/16/23 10/16/23 10/16/23 12:10 12:15 12:30 Temperature Heart Rate 166 H 184 H 164 H Heart Rate [ Monitoring electrodes] Respiratory 17 14 17 Rate Blood Pressure 125/96 H 122/93 H 102/81 H Blood Pressure [Left Brachial artery] Blood Pressure [Right Brachial artery] O2 Saturation 97 95 95 If not protocol : Oxygen Flow, liters/minute 10/16/23 10/16/23 10/16/23 13:00 14:10 14:20 Temperature Heart Rate 155 H 144 H 165 H Heart Rate [ Monitoring electrodes] Respiratory 22 18 18 Rate Blood Pressure 133/89 H 129/96 H 133/97 H Blood Pressure [Left Brachial artery] Blood Pressure [Right Brachial artery] O2 Saturation 95 98 97 If not protocol : Oxygen Flow, liters/minute 10/16/23 10/16/23 10/16/23 14:30 15:00 16:00 Temperature Heart Rate 158 H 157 H 153 H Heart Rate [ Monitoring electrodes] Respiratory 14 19 17 Rate Blood Pressure 124/97 H 116/91 H Blood Pressure [Left Brachial artery] Blood Pressure [Right Brachial artery] O2 Saturation 96 96 If not protocol : Oxygen Flow, liters/minute 10/16/23 10/16/23 10/16/23 16:30 17:00 18:00 Temperature 37.0 C Heart Rate Heart Rate [ 161 H 166 H 167 H Monitoring electrodes] Respiratory 22 20 13 Rate Blood Pressure Blood Pressure 113/76 [Left Brachial artery] Blood Pressure 124/95 H 147/86 H [Right Brachial artery] O2 Saturation 96 94 95 If not protocol : Oxygen Flow, liters/minute 10/16/23 10/16/23 10/16/23 19:00 19:59 21:00 Temperature 37.1 C Heart Rate Heart Rate [ 130 H 153 H 146 H Monitoring electrodes] Respiratory 27 H 20 19 Rate Blood Pressure Blood Pressure 121/93 H 120/84 H 124/85 H [Left Brachial artery] Blood Pressure [Right Brachial artery] O2 Saturation 94 94 93 If not protocol : Oxygen Flow, liters/minute 10/16/23 10/16/23 10/16/23 21:45 22:00 22:41 Temperature Heart Rate 145 H Heart Rate [ 149 H Monitoring electrodes] Respiratory 17 Rate Blood Pressure 124/85 H Blood Pressure 125/78 [Left Brachial artery] Blood Pressure [Right Brachial artery] O2 Saturation 94 If not protocol : Oxygen Flow, liters/minute 10/16/23 10/17/23 10/17/23 23:00 00:00 01:00 Temperature 37.1 C Heart Rate Heart Rate [ 135 H 141 H 135 H Monitoring electrodes] Respiratory 15 15 15 Rate Blood Pressure Blood Pressure 128/77 110/67 153/107 H [Left Brachial artery] Blood Pressure [Right Brachial artery] O2 Saturation 95 95 95 If not protocol 2 : Oxygen Flow, liters/minute 10/17/23 10/17/23 10/17/23 02:00 03:00 04:00 Temperature Heart Rate Heart Rate [ 135 H 142 H 134 H Monitoring electrodes] Respiratory 19 13 18 Rate Blood Pressure Blood Pressure 116/79 119/82 H 118/90 H [Left Brachial artery] Blood Pressure [Right Brachial artery] O2 Saturation 94 98 95 If not protocol 2 2 2 : Oxygen Flow, liters/minute 10/17/23 10/17/23 10/17/23 05:00 05:10 06:00 Temperature Heart Rate 125 H Heart Rate [ 133 H 143 H Monitoring electrodes] Respiratory 21 15 Rate Blood Pressure Blood Pressure 120/84 H 106/75 [Left Brachial artery] Blood Pressure [Right Brachial artery] O2 Saturation 96 96 If not protocol 2 2 : Oxygen Flow, liters/minute 10/17/23 10/17/23 10/17/23 06:26 07:00 08:00 Temperature 36.3 C L Heart Rate Heart Rate [ 141 H 145 H Monitoring electrodes] Respiratory 18 19 Rate Blood Pressure 106/75 Blood Pressure 123/83 H 138/90 H [Left Brachial artery] Blood Pressure [Right Brachial artery] O2 Saturation 96 95 If not protocol : Oxygen Flow, liters/minute 10/17/23 10/17/23 10/17/23 09:00 10:00 11:00 Temperature Heart Rate Heart Rate [ 134 H 139 H 141 H Monitoring electrodes] Respiratory 18 18 18 Rate Blood Pressure Blood Pressure 124/86 H 115/84 H 123/81 H [Left Brachial artery] Blood Pressure [Right Brachial artery] O2 Saturation 95 95 92 If not protocol : Oxygen Flow, liters/minute Oxygen O2 Source Room air I&O (Last 24 Hrs): Intake and Output Totals x24h 10/15/23 10/16/23 10/17/23 23:59 23:59 23:59 Intake Total 302.583 353.5 Output Total 1150 450 Balance -847.417 -96.5 General: Alert, Oriented x3, Cooperative, No acute distress Neuro: Alert, CN 2-12 Grossly Intact, Oriented Times 3 Cardiovascular: Regular rate, Normal S1, Normal S2, No murmurs Respiratory: Chest non-tender, No respiratory distress, Breath sounds nml Abdomen: Normal bowel sounds, Soft, No tenderness, No hepatospenomegaly, No masses - Results Results: Laboratory Results WBC 10.8 x10^3/uL (4.8-10.8) 10/17/23 05:27 RBC 5.26 10^6/uL (4.70-6.10) 10/17/23 05:27 Hgb 16.0 g/dL (14.0-18.0) 10/17/23 05:27 Hct 48.4 % (42.0-52.0) 10/17/23 05:27 MCV 92.0 fL (80.0-94.0) 10/17/23 05:27 MCH 30.4 pg (27.0-31.0) 10/17/23 05:27 MCHC 33.1 g/dL (32.0-36.0) 10/17/23 05:27 RDW 13.8 % (12.0-15.0) 10/17/23 05:27 Plt Count 219 10^3/uL (130-450) 10/17/23 05:27 MPV 11.6 fL (7.4-11.4) H 10/17/23 05:27 Neut # (Auto) 7.9 10^3/uL (1.5-6.6) H 10/17/23 05:27 Lymph # (Auto) 1.8 10^3/uL (1.5-3.5) 10/17/23 05:27 [place] # (Auto) 0.9 10^3/uL (0.0-1.0) 10/17/23 05:27 Eos # (Auto) 0.1 10^3/uL (0.0-0.7) 10/17/23 05:27 Baso # (Auto) 0.0 10^3/uL (0.0-0.1) 10/17/23 05:27 Absolute Nucleated RBC 0.00 x10^3/uL 10/17/23 05:27 Nucleated RBC % 0.0 /100WBC 10/17/23 05:27 PT 15.5 secs (9.9-12.6) H 10/16/23 11:13 INR 1.5 (0.8-1.2) H 10/16/23 11:13 VBG pH 7.408 (7.31-7.41) 10/17/23 05:27 Ionized Calcium 1.18 mmol/L (1.15-1.33) 10/17/23 05:27 Sodium 142 mmol/L (135-145) 10/17/23 05:27 Potassium 4.2 mmol/L (3.5-4.5) 10/17/23 05:27 Chloride 107 mmol/L (101-111) 10/17/23 05:27 Carbon Dioxide 29 mmol/L (21-32) 10/17/23 05:27 Anion Gap 6.0 (6-13) 10/17/23 05:27 BUN 26 mg/dL (6-20) H 10/17/23 05:27 Creatinine 1.3 mg/dL (0.6-1.3) 10/17/23 05:27 Estimated GFR (MDRD) 53 (>89) L 10/17/23 05:27 Glucose 114 mg/dL (74-104) H 10/17/23 05:27 Calcium 9.8 mg/dL (8.5-10.3) 10/17/23 05:27 Phosphorus 3.4 mg/dL (2.5-5.0) 10/17/23 05:27 Magnesium 1.6 mg/dL (1.7-2.3) L 10/17/23 09:03 Total Bilirubin 1.5 mg/dL (0.2-1.0) H 10/16/23 11:13 AST 49 IU/L (10-42) H 10/16/23 11:13 ALT 61 IU/L (10-60) H 10/16/23 11:13 Alkaline Phosphatase 81 IU/L (42-121) 10/16/23 11:13 Troponin I High Sens 14.2 ng/L (2.3-19.7) 10/16/23 16:11 B-Natriuretic Peptide 480 pg/mL (5-100) H 10/16/23 11:13 Total Protein 7.2 g/dL (6.4-8.9) 10/16/23 11:13 Albumin 4.2 g/dL (3.2-5.5) 10/16/23 11:13 Globulin 3.0 g/dL (2.1-4.2) 10/16/23 11:13 Albumin/Globulin Ratio 1.4 (1.0-2.2) 10/16/23 11:13 Lipase 44 U/L (11-82) 10/16/23 11:13 TSH 5.28 uIU/mL (0.34-5.60) 10/16/23 11:13 Nasal Screen MRSA (PCR) NEGATIVE (NEGATIVE) 10/16/23 16:23 Sepsis Event Note (H) - Evaluation Current Stage of Sepsis: Ruled out
[2023-10-17] MEDS: AMIODARONE 360 MG/200 ML 200 ML IV SCH (14:40)
[2023-10-17] MEDS: MAGNESIUM SULFATE 2 GRAM 2 GM/50 ML BAG IV ONE (15:02)
--- NOTE | 2023-10-17 17:50 | DISCHARGE SUMMARY ---
Discharge Summary Admit Date: 10/16/23 Discharge Date: 10/17/23 Discharging Provider: John Kennedy Code Status: Do Not Attempt Resuscitation Condition at Discharge: Stable Discharge Disposition: 02 Transfer Acute Care Hosp - [facility] History of Present Illness: Patient is a 78-year-old male with a past medical history of hypertension, hyperlipidemia, prior pulmonary emboli in 2011 and 2016 of unknown etiology and on rivaroxaban chronically who presented to the ED due to complaints of shortness of breath that had been progressing over several months as well as unintentional weight gain. Upon presentation chest x-ray was performed which showed evidence of a moderate right and small left pleural effusion with bibasilar atelectasis. Patient was not hypoxic however an EKG reportedly showed atrial fibrillation with rapid ventricular rate. He was given a bolus of diltiazem and started on a diltiazem infusion for rate control. His initial troponin was negative. Patient was also given IV Lasix. His creatinine was 1.4. During my evaluation patient denied any current complaints while at rest. He did not have any chest pain. He states he has been evaluated with a stress test in the past which was negative however he does not have a electroencephalographic technologist. - HOSPITAL COURSE Hospital Course: Patient is a 78-year-old male who presented to the ED due to progressively worsening shortness of breath and lower extremity edema. EKG was performed which revealed that he was in atrial fibrillation with a rapid ventricular rate. Patient was started on a diltiazem infusion and transferred to the medical floor. He had a heart rate between 140 and 160 while on the diltiazem drip at maximum rate. He was given 250 mcg of digoxin for 3 doses which did not help with rate control. Patient was transition to IV amiodarone and was given 2 boluses of 150 mg however he remained in atrial fibrillation with rapid ventricular rate with rates in the 140s. Case was discussed with cardiology at [facility] who accepted the patient for a possible cardioversion. Patient has been on anticoagulation since 2017 and has not missed any doses. - ALLERGIES Allergies/Adverse Reactions: Allergies Allergy/AdvReac Type Severity Reaction Status Date / Time No Known Drug Allergies Allergy Verified 10/16/23 11:24 - MEDICATIONS Home Medications: Ambulatory Orders Medication Instructions Recorded Confirmed Atorvastatin [Lipitor] 20 mg HS 10/16/23 10/16/23 Lisinopril [Zestril] 20 mg PO DAILY 10/16/23 10/16/23 Rivaroxaban [Xarelto] 20 mg PO QPM 10/16/23 10/16/23 hydroCHLOROthiazide [Hydrodiuril] 12.5 mg DAILY 10/16/23 10/16/23 - PHYSICAL EXAM AT DISCHARGE General Appearance: positive: No acute distress Respiratory: positive: Chest non-tender, No respiratory distress, Breath sounds nml Cardiovascular: positive: Regular rate & rhythm, No murmur, No gallop Abdomen: positive: Non-tender, No organomegaly, Nml bowel sounds Extremities: positive: Non-tender, No pedal edema Neurologic/Psychiatric: positive: Oriented x3, CN's nml (2-12) - LABS Result Diagrams: 10/17/23 05:27 10/17/23 05:27 - SEPSIS Current Stage of Sepsis: Ruled out - TIME SPENT Time Spent in Discharge (Minutes): 35
[2023-10-17 19:10] VITALS: BP 151/100; O2SAT 94
== END 2023-10-17 19:00 | disposition short-term general hospital (02) | DRG 309 ==
LOC: ED 10:54 → ICU 14:18
PROVIDERS: ADMIT Family Medicine; ATTEND Family Medicine
DX: I48.91 Unspecified atrial fibrillation (principal); J90 Pleural effusion, not elsewhere classified; N17.9 Acute kidney failure, unspecified; R00.0 Tachycardia, unspecified; R60.0 Localized edema; J98.11 Atelectasis; I10 Essential (primary) hypertension; I11.0 Hypertensive heart disease with heart failure; E78.00 Pure hypercholesterolemia, unspecified; I50.9 Heart failure, unspecified; Z86.711 Personal history of pulmonary embolism; Z79.01 Long term (current) use of anticoagulants; E78.5 Hyperlipidemia, unspecified
CPT/HCPCS: 36415; 71045; 80048; 80053; 82330; 83690; 83735; 83880; 84100; 84443; 84484; 85025; 85610; 87150; 93005; 93307; 96374; 96376; 99285; A9270; J0282

== ENCOUNTER 2023-10-30 07:23 | Outpatient (CLI) | payer MEDICARE ==
[2023-10-30 15:09] LABS: BASOPHILS # (AUTO) 0.1 10^3/uL (0.0-0.1); BASOPHILS % (AUTO) 0.7 %; EOSINOPHILS # (AUTO) 0.2 10^3/uL (0.0-0.7); EOSINOPHILS % (AUTO) 2.2 %; HCT - HEMATOCRIT 49.7 % (42.0-52.0); HGB - HEMOGLOBIN 15.8 g/dL (14.0-18.0); LYMPHOCYTES # (AUTO) 1.5 10^3/uL (1.5-3.5); MEAN CORPUSCULAR HEMOGLOBIN 29.8 pg (27.0-31.0); MEAN CORPUSCULAR HGB CONC 31.8 g/dL (32.0-36.0); MEAN CORPUSCULAR VOLUME 93.8 fL (80.0-94.0); MEAN PLATELET VOLUME 10.7 fL (7.4-11.4); MONOCYTES # (AUTO) 0.7 10^3/uL (0.0-1.0); MONOCYTES % (AUTO) 8.5 %; NEUTROPHILS % (AUTO) 70.2 %; PLT - PLATELET COUNT 311 10^3/uL (130-450); RED CELL DISTRIBUTION WIDTH 13.9 % (12.0-15.0); WHITE BLOOD COUNT 8.5 x10^3/uL (4.8-10.8)
[2023-10-30 15:48] LABS: ALBUMIN 4.1 g/dL (3.2-5.5); ALBUMIN/GLOBULIN RATIO 1.5 (1.0-2.2); ALKALINE PHOSPHATASE 71 IU/L (42-121); ALT ALANINE AMINOTRANSFERASE 32 IU/L (10-60); AST ASPARTATE AMINOTRANSFERASE 27 IU/L (10-42); BILIRUBIN,TOTAL 0.9 mg/dL (0.2-1.0); BUN - BLOOD UREA NITROGEN 52 mg/dL (6-20); CALCIUM 9.7 mg/dL (8.5-10.3); CARBON DIOXIDE - CO2 31 mmol/L (21-32); CHLORIDE 105 mmol/L (101-111); CHOL/HDL RATIO 3.1 (<5.0); CHOLESTEROL 152 mg/dL; CREATININE 1.9 mg/dL (0.6-1.3); GFR - MDRD 34 (>89); GLUCOSE 118 mg/dL (74-104); HDL CHOLESTEROL 49 mg/dL; LDL CHOLESTEROL,CALCULATED 87 mg/dL; LDL/HDL RATIO 1.8 (<3.6); POTASSIUM 4.6 mmol/L (3.5-4.5); SODIUM 141 mmol/L (135-145); TOTAL PROTEIN 6.8 g/dL (6.4-8.9); TRIGLYCERIDES 78 mg/dL; VLDL CHOLESTEROL 16 mg/dL
== END 2023-10-30 07:24 | disposition home or self-care (01) ==
LOC: LAB.S 07:23
PROVIDERS: ATTEND Registered Nurse
DX: E78.5 Hyperlipidemia, unspecified (principal); Z79.899 Other long term (current) drug therapy; I50.9 Heart failure, unspecified; N17.9 Acute kidney failure, unspecified; N18.9 Chronic kidney disease, unspecified
CPT/HCPCS: 36415; 80053; 80061; 83721; 85025